=== PATIENT | male | born 1990 | race Caucasian/White ===

== ENCOUNTER 2024-02-02 16:34 | Emergency (ER) | payer BC ==
[~2024-02-02] VITALS: Ht 175.3 cm; Wt 88.9 kg
[2024-02-02 16:46] VITALS: BP 149/97
[2024-02-02] MEDS ORDERED: KETOROLAC TROMETHAMINE 30 MG/ML SDV IM ONE (16:50)
[2024-02-02 17:18] VITALS: BP 127/90
[2024-02-02 17:30] VITALS: BP 144/91
[2024-02-02 17:45] VITALS: BP 129/90
[2024-02-02 17:49] LABS: BASO% 0.4 % (0-3); EOS% 1.1 % (0-8); HEMATOCRIT 41.6 % (39.0-50.0); HEMOGLOBIN 14.4 g/dl (14.0-18.0); IMMATURE GRANULOCYTES 0.2 % (0.0-5.0); LYMPH% 33.8 % (15-41); MEAN CELL VOLUME 88.3 fL CALC (80.0-100.0); MEAN CORPUSCULAR HGB 30.6 pG CALC (26.0-32.0); MEAN CORPUSCULAR HGB CONC 34.6 g/dL CAL (32.0-36.0); MONO% 6.7 % (2-13); NEUT# 2.6 thou/uL (1.82-7.42); NEUT% 57.8 % (42-76); RED BLOOD COUNT 4.71 mill/uL (4.70-6.10); RED CELL DISTRI WIDTH 11.4 % (11.5-15.5)
[2024-02-02 18:02] LABS: ALBUMIN 4.6 g/dL (3.2-5.0); BILIRUBIN, TOTAL 0.7 mg/dL (0.2-1.3); CREATININE 0.9 mg/dL (0.7-1.3); POTASSIUM 3.9 mmol/l (3.5-5.1); TOTAL PROTEIN 7.9 g/dL (6.3-8.2)
[2024-02-02] MEDS ORDERED: NAPROXEN500 MG PO (18:22)
[2024-02-02] MEDS ORDERED: FLEXERIL5 M1 PO (18:22)
[2024-02-02 18:27] VITALS: BP 129/90
== END 2024-02-02 18:45 | disposition home or self-care (01) | DRG 556 ==
LOC: ED 16:34
PROVIDERS: Family Medicine
DX: M62.838 Other muscle spasm (principal); R20.2 Paresthesia of skin